=== PATIENT | male | born 1970 | race Caucasian/White ===

== ENCOUNTER → 2016-06-10 | Outpatient (CLI) | payer OTHER ==
[~2016-06-10] MED LIST: ALBUAER2 INH; ATEN100T8 PO; FLUT0.0529 NAE; GLC500; LEVO25TA PO; LPD600; MYS50 PO; OXYC-57 PO; POTA8TAB PO; PXL/40 PO; WLLSR100 PO
[2016-06-10 14:02] LABS: ESTIMATED AVERAGE GLUCOSE 240 mg/dl; HA1C FLAG Normal (Normal)
[2016-06-10 14:26] LABS: TRIGLYCERIDES 696 mg/dl (0-150)
== END | disposition home or self-care (01) ==
LOC: C.LABMFLN 11:08
PROVIDERS: ATTEND Family Medicine
DX: I10 Essential (primary) hypertension (principal); F41.9 Anxiety disorder, unspecified; E11.9 Type 2 diabetes mellitus without complications; E78.5 Hyperlipidemia, unspecified

== ENCOUNTER → 2016-09-24 | Outpatient (CLI) | payer OTHER ==
[2016-09-24 13:21] LABS: ESTIMATED AVERAGE GLUCOSE 137 mg/dl; HA1C FLAG Normal (Normal)
[2016-09-24 14:23] LABS: ALT/SGPT 36 U/L (12-78); AST/SGOT 16 U/L (15-37); BLOOD UREA NITROGEN 21 mg/dl (7-18); BUN/CREATININE RATIO 22.4 (10-20); CALCIUM 9.2 mg/dl (8.5-10.1); CARBON DIOXIDE 25 mmol/L (21-32); CHLORIDE 101 mmol/L (98-107); CREATININE 0.93 mg/dl (0.60-1.40); GLUCOSE 121 mg/dl (70-99); POTASSIUM 4.2 mmol/L (3.5-5.1); SODIUM 137 mmol/L (136-145)
[2016-09-24 14:33] LABS: ALB/GLOB RATIO 1.1 (0.9-2); ALKALINE PHOSPHATASE 72 U/L (45-117); CHOLESTEROL 185 mg/dl (0-200); CHOLESTEROL/HDL RATIO 4.2; HDL CHOLESTEROL 44 mg/dl; LDL CHOLESTEROL CALCULATED 106 mg/dl; TRIGLYCERIDES 174 mg/dl (0-150); VERY LOW DENSITY LIPOPROT CALC 35 mg/dl
== END | disposition home or self-care (01) ==
LOC: C.LABMFLN 10:44
PROVIDERS: ATTEND Family Medicine
DX: E11.65 Type 2 diabetes mellitus with hyperglycemia (principal); E78.5 Hyperlipidemia, unspecified; E55.9 Vitamin D deficiency, unspecified; E03.9 Hypothyroidism, unspecified

== ENCOUNTER → 2017-02-03 | Outpatient (CLI) | payer OTHER ==
[2017-02-03 18:05] LABS: ALT/SGPT 29 U/L (12-78); BLOOD UREA NITROGEN 19 mg/dl (7-18); BUN/CREATININE RATIO 22.5 (10-20); CALCIUM 9.2 mg/dl (8.5-10.1); CARBON DIOXIDE 30 mmol/L (21-32); CHLORIDE 102 mmol/L (98-107); CREATININE 0.84 mg/dl (0.60-1.40); GLUCOSE 129 mg/dl (70-99); POTASSIUM 3.9 mmol/L (3.5-5.1); SODIUM 137 mmol/L (136-145)
[2017-02-03 18:15] LABS: ALKALINE PHOSPHATASE 60 U/L (45-117); AST/SGOT 19 U/L (15-37)
[2017-02-04 06:12] LABS: ESTIMATED AVERAGE GLUCOSE 131 mg/dl; HA1C FLAG Normal (Normal)
== END | disposition home or self-care (01) ==
LOC: C.LABMFLN 14:17
PROVIDERS: ATTEND Family Medicine
DX: E11.9 Type 2 diabetes mellitus without complications (principal); E03.9 Hypothyroidism, unspecified

== ENCOUNTER → 2017-08-18 | Outpatient (CLI) | payer OTHER ==
[2017-08-18 18:15] LABS: ALT/SGPT 40 U/L (12-78); AST/SGOT 21 U/L (15-37); BLOOD UREA NITROGEN 12 mg/dl (7-18); CALCIUM 9.4 mg/dl (8.5-10.1); CARBON DIOXIDE 24 mmol/L (21-32); CREATININE 0.81 mg/dl (0.60-1.40); GLUCOSE 200 mg/dl (70-99); POTASSIUM 4.1 mmol/L (3.5-5.1); SODIUM 134 mmol/L (136-145)
[2017-08-18 18:26] LABS: ALKALINE PHOSPHATASE 75 U/L (45-117); TOTAL PROTEIN 7.9 gm/dl (6.4-8.2)
[2017-08-19 06:15] LABS: HEMOGLOBIN A1C 7.4 % (4.5-5.6)
== END | disposition home or self-care (01) ==
LOC: C.LABMFLN 12:12
PROVIDERS: ATTEND Family Medicine
DX: E11.65 Type 2 diabetes mellitus with hyperglycemia (principal); E03.9 Hypothyroidism, unspecified; E55.9 Vitamin D deficiency, unspecified

== ENCOUNTER → 2018-01-13 | Outpatient (CLI) | payer OTHER ==
[2018-01-13 18:47] LABS: ALT/SGPT 46 U/L (12-78); BLOOD UREA NITROGEN 10 mg/dl (7-18); CALCIUM 9.4 mg/dl (8.5-10.1); CARBON DIOXIDE 26 mmol/L (21-32); CREATININE 0.87 mg/dl (0.60-1.40); GLUCOSE 90 mg/dl (70-99); LDL CHOLESTEROL (DIRECT) 78 mg/dl; SODIUM 138 mmol/L (136-145)
[2018-01-14 05:57] LABS: HEMOGLOBIN A1C 6.4 % (4.5-5.6)
== END | disposition home or self-care (01) ==
LOC: C.LABMFLN 13:51
PROVIDERS: ATTEND Family Medicine
DX: E55.9 Vitamin D deficiency, unspecified (principal); E78.5 Hyperlipidemia, unspecified

== ENCOUNTER 2023-06-10 09:55 | Observation (INO) ==
--- NOTE | 2023-05-09 10:23 | PAT Medication Instructions ---
Medication Instructions Date of Service May 09, 2023 Home Medications Medication Instructions Recorded lancets 30 gauge (AzaleaTouch [place] #180 ea 01/11/19 Lancets) blood sugar diagnostic (AzaleaTouch #180 ea 08/26/19 Verio test strips) sildenafil 100 mg tablet 100 mg PO .expected intercourse 09/11/21 #14 tabs atorvastatin 20 mg tablet 20 mg PO DAILY #90 tabs 08/02/22 metformin 1,000 mg tablet 1,000 mg PO BID #60 tabs 11/29/22 albuterol sulfate 90 mcg/actuation 2 inh inhalation Q8H PRN shortness 01/20/23 aerosol inhaler of breath or wheezing #8.5 grams fluticasone propionate 50 See Rx Instructions .Route 02/12/23 mcg/actuation nasal .COMPLEX #16 grams spray,suspension gemfibrozil 600 mg tablet 600 mg PO BID #60 tabs 02/24/23 diclofenac sodium 75 mg 75 mg PO BID #60 tabs 03/04/23 tablet,delayed release pregabalin 50 mg capsule 50 mg PO BID #60 caps 03/07/23 buspirone 7.5 mg tablet 7.5 mg PO BID #30 tabs 05/08/23 sildenafil 100 mg tablet 100 mg PO .expected intercourse atorvastatin 20 mg tablet 20 mg PO DAILY ibuprofen 200 mg capsule 200 mg PO Q6H PRN Pain metformin 1,000 mg tablet 1,000 mg PO BID albuterol sulfate 90 mcg/actuation aerosol inhaler 2 inh inhalation Q8H PRN shortness of breath or wheezing fluticasone propionate 50 mcg/actuation nasal spray,suspension See Rx Instructions gemfibrozil 600 mg tablet 600 mg PO BID diclofenac sodium 75 mg tablet,delayed release 75 mg PO BID pregabalin 50 mg capsule 50 mg PO BID buspirone 7.5 mg tablet 7.5 mg PO BID cetirizine 10 mg tablet 10 mg PO DAILY PRN Allergy Symptoms glimepiride 2 mg tablet 2 mg PO QAM levothyroxine 100 mcg tablet 100 mcg PO QAM lisinopril 20 mg-hydrochlorothiazide 25 mg tablet 1 tab PO QAM nicotine (polacrilex) 2 mg gum 2 mg buccal Q2H PRN craving paroxetine HCl 40 mg tablet 40 mg PO QPM Continue as directed atorvastatin 20 mg tablet 20 mg PO DAILY fluticasone propionate 50 mcg/actuation nasal spray,suspension See Rx Instructions ASK your surgeon for instructions ibuprofen 200 mg capsule 200 mg PO Q6H PRN Pain diclofenac sodium 75 mg tablet,delayed release 75 mg PO BID STOP taking 48 hours before surgery gemfibrozil 600 mg tablet 600 mg PO BID STOP taking 24 hours before surgery sildenafil 100 mg tablet 100 mg PO .expected intercourse DO NOT take the morning of surgery metformin 1,000 mg tablet 1,000 mg PO BID cetirizine 10 mg tablet 10 mg PO DAILY PRN Allergy Symptoms glimepiride 2 mg tablet 2 mg PO QAM lisinopril 20 mg-hydrochlorothiazide 25 mg tablet 1 tab PO QAM nicotine (polacrilex) 2 mg gum 2 mg buccal Q2H PRN craving Take morning of surgery With a small sip of water, OTHERWISE NOTHING TO EAT OR DRINK AFTER MIDNIGHT: albuterol sulfate 90 mcg/actuation aerosol inhaler 2 inh inhalation Q8H PRN shortness of breath or wheezing (use if needed; please bring with you to hospital day of surgery if possible) pregabalin 50 mg capsule 50 mg PO BID buspirone 7.5 mg tablet 7.5 mg PO BID levothyroxine 100 mcg tablet 100 mcg PO QAM Take evening before surgery metformin 1,000 mg tablet 1,000 mg PO BID albuterol sulfate 90 mcg/actuation aerosol inhaler 2 inh inhalation Q8H PRN shortness of breath or wheezing (if needed) pregabalin 50 mg capsule 50 mg PO BID buspirone 7.5 mg tablet 7.5 mg PO BID cetirizine 10 mg tablet 10 mg PO DAILY PRN Allergy Symptoms (if needed) paroxetine HCl 40 mg tablet 40 mg PO QPM nicotine (polacrilex) 2 mg gum 2 mg buccal Q2H PRN craving (if needed) Other Notes If you have any questions please call us at [phone] or [phone] or [phone] or [phone]
--- NOTE | 2023-05-14 09:10 | Anesthesiology Consultation ---
Date of Service May 14, 2023 Assessment & Plan (1) Encounter for pre-operative examination: - Awaiting review of preop testing (labs + A1C/MRSA, EKG). - IV LR, bsg - Check BSG AM DOS - Infectious disease screening: Per assessment on 05/08/23: No known infectious disease contacts or current infectious disease symptoms. No noted recent Covid positive test result. Chart Review Chart Review: Patient seen in Pre Admission Testing Teaching & Discussion Pre-Anesthesia Teaching/Discussion Notes: Instructed NPO after midnight before surgery,except medications with 15 cc of water. Medication instructions provided according to the PAT guidelines. History Surgery Operation Date: 06/03/23 07:15 Proposed Procedures p L2-L3 Lumbar Decompression - Golden Benites MD Height/Weight Height: 6 ft Weight: 147.871 kg Allergies Allergy/AdvReac Type Severity Reaction Status Date / Time meloxicam Allergy Unknown ?slurred Verified 05/14/23 08:20 speech liraglutide [From Victoza] Allergy itching Verified 05/14/23 08:20 Medications Home Medications Medication Instructions Recorded Confirmed Last Taken lancets 30 gauge (OneTouch [employer]ica #180 ea 01/11/19 05/14/23 Unknown Lancets) blood sugar diagnostic (OneTouch #180 ea 08/26/19 05/14/23 Unknown Verio test strips) blood sugar diagnostic (OneTouch #10 ea 09/07/19 05/14/23 Unknown Verio test strips) lancets 33 gauge (OneTouch Delica #100 ea 09/07/19 05/14/23 Unknown Lancets) sildenafil 100 mg tablet 100 mg PO .expected intercourse 09/11/21 05/14/23 Unknown #14 tabs atorvastatin 20 mg tablet 20 mg PO DAILY #90 tabs 08/02/22 05/14/23 Unknown ibuprofen 200 mg capsule 200 mg PO Q6H PRN Pain 08/02/22 05/14/23 Unknown albuterol sulfate 90 mcg/actuation 2 inh inhalation Q8H PRN shortness 01/20/23 1 07/15/22 Unknown aerosol inhaler of breath or wheezing #8.5 grams fluticasone propionate 50 See Rx Instructions .Route 02/12/23 05/14/23 Unknown mcg/actuation nasal .COMPLEX #16 grams spray,suspension gemfibrozil 600 mg tablet 600 mg PO BID #60 tabs 10/02/23 12/20/23 Unknown diclofenac sodium 75 mg 75 mg PO BID #60 tabs 03/04/23 05/14/23 Unknown tablet,delayed release pregabalin 50 mg capsule 50 mg PO BID #60 caps 03/07/23 05/14/23 Unknown buspirone 7.5 mg tablet 7.5 mg PO BID #30 tabs 05/08/23 05/14/23 Unknown cetirizine 10 mg tablet 10 mg PO DAILY PRN Allergy Symptoms 05/08/23 05/14/23 Unknown glimepiride 2 mg tablet 2 mg PO QAM 05/08/23 05/14/23 Unknown lisinopril 20 1 tab PO QAM 05/08/23 05/14/23 Unknown mg-hydrochlorothiazide 25 mg tablet nicotine (polacrilex) 2 mg gum 2 mg buccal Q2H PRN craving 05/08/23 05/14/23 Unknown paroxetine HCl 40 mg tablet 40 mg PO QPM 05/08/23 05/14/23 Unknown metformin 1,000 mg tablet 1,000 mg PO BID #60 tabs 05/12/23 05/14/23 Unknown levothyroxine 100 mcg tablet 100 mcg PO QAM #90 tabs 05/13/23 05/14/23 Unknown Past Medical History Medical History History of degenerative disc disease Spinal stenosis Osteoarthritis Anxiety HTN (hypertension) Sleep apnea CPAP Lumbar radiculopathy Diabetes mellitus type 2, uncontrolled Hyperlipidemia Hypothyroidism Morbid obesity Past Family History Family History Mother Diabetes Cancer Renal cell cancer metastatic bone. Grandfather (Paternal) Myocardial infarction, Onset Age: 70 Cancer ? type 70s Grandmother (Maternal) No problems noted. Grandmother (Paternal) Cancer Lung cancer Father Heart disease Uncle Prostate cancer Alcoholism Uncle Cancer, Onset Age: 52 throat cancer alcohol and smoker Sister No problems noted. Aunt Cancer, Onset Age: 68 uterine cancer mets to brain age 70 Past Surgical History Surgical History History of cervical spinal surgery ROM WNL History of left knee surgery History of right knee surgery x2 History of nasal septoplasty Social History Smoking Status: Current every day smoker tobacco type: cigarettes Smoking cigarettes per day: 20 Do You Dip or Chew Tobacco: No Hx Alcohol Use: No Alcohol type: beer Hx Substance Use: No substance use type: does not use Physical Exam Vital Signs VITALS BP P TEMP SP02 RESP PHYSICAL Full cervical extension range of motion. Full TMJ range of motion. TMD __ finger breaths Mallampati Score ___ Dentition: intact Lungs: clear throughout to auscultation Cardiac: regular rate and rhythm, no murmurs noted Spine: normal Carotid arteries: negative bruit Extremities: no LE edema
--- NOTE | 2023-05-23 13:18 | Anesthesiology Consultation ---
Date of Service May 23, 2023 Assessment & Plan (1) Encounter for pre-operative examination: Chart Review Chart Review: Acceptable Risk for Surgery and Patient seen in Pre Admission Testing - Check BSG AM DOS - Discussed case with Dr. Chambers- patient can proceed as scheduled from anesthesia standpoint Per PAT appt on 05/15/23, no recent illness/disease exposures, illness related symptoms, or recent illness/disease positive tests. Will leave to surgeon's discretion if preop Covid testing needed Teaching & Discussion Pre-Anesthesia Teaching/Discussion Notes: Instructed NPO after midnight before surgery,except medications with 15 cc of water. Medication instructions provided according to the PAT guidelines. History Surgery Operation Date: 06/03/23 07:15 Proposed Procedures p L2-L3 Lumbar Decompression - Golden Benites MD Height/Weight Height: 6 ft Weight: 145.1 kg Allergies Allergy/AdvReac Type Severity Reaction Status Date / Time meloxicam Allergy Unknown ?slurred Verified 05/14/23 08:20 speech liraglutide [From Victoza] Allergy itching Verified 05/14/23 08:20 Medications Home Medications Medication Instructions Recorded Confirmed Last Taken lancets 30 gauge (OneTouch Delica #180 ea 01/11/19 05/14/23 Unknown Lancets) blood sugar diagnostic (OneTouch #180 ea 08/26/19 05/14/23 Unknown Verio test strips) blood sugar diagnostic (OneTouch #10 ea 09/07/19 05/14/23 Unknown Verio test strips) lancets 33 gauge (OneTouch Delica #100 ea 09/07/19 05/14/23 Unknown Lancets) sildenafil 100 mg tablet 100 mg PO .expected intercourse 09/11/21 05/14/23 Unknown #14 tabs atorvastatin 20 mg tablet 20 mg PO DAILY #90 tabs 08/02/22 05/14/23 Unknown ibuprofen 200 mg capsule 200 mg PO Q6H PRN Pain 08/02/22 05/14/23 Unknown albuterol sulfate 90 mcg/actuation 2 inh inhalation Q8H PRN shortness 01/20/23 05/14/23 Unknown aerosol inhaler of breath or wheezing #8.5 grams fluticasone propionate 50 See Rx Instructions .Route 02/12/23 05/14/23 Unknown mcg/actuation nasal .COMPLEX #16 grams spray,suspension gemfibrozil 600 mg tablet 600 mg PO BID #60 tabs 02/24/23 05/14/23 Unknown diclofenac sodium 75 mg 75 mg PO BID #60 tabs 03/04/23 05/14/23 Unknown tablet,delayed release pregabalin 50 mg capsule 50 mg PO BID #60 caps 03/07/23 05/14/23 Unknown buspirone 7.5 mg tablet 7.5 mg PO BID #30 tabs 05/08/23 05/14/23 Unknown cetirizine 10 mg tablet 10 mg PO DAILY PRN Allergy Symptoms 05/08/23 05/14/23 Unknown glimepiride 2 mg tablet 2 mg PO QAM 05/08/23 05/14/23 Unknown lisinopril 20 1 tab PO QAM 05/08/23 05/14/23 Unknown mg-hydrochlorothiazide 25 mg tablet nicotine (polacrilex) 2 mg gum 2 mg buccal Q2H PRN craving 05/08/23 05/14/23 Unknown paroxetine HCl 40 mg tablet 40 mg PO QPM 05/08/23 05/14/23 Unknown metformin 1,000 mg tablet 1,000 mg PO BID #60 tabs 05/12/23 05/14/23 Unknown levothyroxine 100 mcg tablet 100 mcg PO QAM #90 tabs 05/13/23 05/14/23 Unknown Past Medical History Medical History (Updated 05/27/23 @ 11:14 by Suha Gutierrez PA-C) Asthma Breathing stable Type 2 diabetes mellitus Hgb A1C 8.8 on 05/23/23 History of degenerative disc disease Spinal stenosis Anxiety HTN (hypertension) Sleep apnea CPAP Lumbar radiculopathy Hyperlipidemia Hypothyroidism Morbid obesity Exercise / Class Metabolic Activity III < 4 Walking/Shop/Light housework (no chest pain or SOB with flat surface ambulation ; only a few stairs at home ) Past Family History Family History Mother Diabetes Cancer Renal cell cancer metastatic bone. Grandfather (Paternal) Myocardial infarction, Onset Age: 70 Cancer ? type 70s Grandmother (Maternal) No problems noted. Grandmother (Paternal) Cancer Lung cancer Father Heart disease Uncle Prostate cancer Alcoholism Uncle Cancer, Onset Age: 52 throat cancer alcohol and smoker Sister No problems noted. Aunt Cancer, Onset Age: 68 uterine cancer mets to brain age 70 Past Surgical History Surgical History History of cervical spinal surgery ROM WNL History of left knee surgery History of right knee surgery x2 History of nasal septoplasty Past Anesthesia History No Hx of Anesthesia Complications and No Family Hx of Anesthesia Complications History of PONV No Hx of PONV and No Hx of Motion Sickness Social History Smoking Status: Current every day smoker tobacco type: cigarettes Smoking cigarettes per day: 20 cigs/day Do You Dip or Chew Tobacco: No Hx Alcohol Use: No Hx Substance Use: No substance use type: does not use Review of Systems - Chronic wheezing- due to asthma- mild and stable Patient denies chest pain, shortness of breath, dyspnea on exertion, reflux, cough, palpitations. No hx of seizures, stroke, CO. No hx of blood clots or blood transfusions Physical Exam Vital Signs VITALS BP 117/75 P 87 TEMP 98.3 SP02 96% RESP 16 Constitutional no acute distress ENMT Mouth: no TMJ clicking Thyromental Distance: > or= 3.5 Finger Breadths (4.0) Mallampati Class: II Missing molars Neck + limited neck extension (mild) and + facial hair (advised to trim/shave) Respiratory normal respiratory effort; no respiratory distress Auscultation: lungs clear to auscultation bilaterally; no wheezes Cardiovascular Rate/Rhythm: regular rate and regular rhythm Heart Sounds: no murmur Vessels: no carotid bruit Heart sounds diminished throughout (mild) Musculoskeletal Spine: no pain with cervical ROM Extremities: extremities normal to inspection Psychiatric Orientation: alert Lab Results Anesthesia Preop Results Results Anesthesia Widget: WBC 10.33 K/ul (4.8-10.8) 05/23/23 Hgb 14.1 g/dl (14.0-18.0) 05/23/23 Hct 42.2 % (42.0-52.0) 05/23/23 Plt 330 K/uL (130-400) 05/23/23 Na 137 mmol/L (136-145) 05/23/23 K 4.3 mmol/L (3.5-5.1) 05/23/23 Cl 102 mmol/L (98-107) 05/23/23 CO2 25 mmol/L (21-32) 05/23/23 BUN 18 mg/dl (6-23) 05/23/23 Creat 0.87 mg/dl (0.6-1.4) 05/23/23 Glucose Level 193 mg/dl (70-99(Fasting)) H 05/23/23 PT 10.9 Seconds (9.0-12.0) 05/23/23 PTT 27 Seconds (21-31) 05/23/23 INR 1.0 (0.9-1.1) 05/23/23 HA1c 8.8 % (4.5-5.6) H 05/23/23 Blood Type O Positive 05/23/23 Antibody Screen NEGATIVE 05/23/23 Testing Laboratory Results Elevated Hgb A1C- surgeon's office informed- will leave to surgeon's discretion with how to proceed Electrocardiogram Date: 05/23/23 Findings: + NSR @ (79bpm) Rightward axis Chest X-Ray Date: 05/23/23 Findings: + NAD FINDINGS: Cardiomediastinal and hilar silhouettes are within normal limits. Calcified hilar lymph nodes. No pneumothorax, pleural effusion, airspace consolidation or pulmonary edema. Unchanged chronic punctate metallic density focus projected over the right upper chest. Cervical spinal fusion hardware. IMPRESSION: No acute process.
[~2023-06-10 09:55] MED LIST changes: -ALBUAER2 INH; -ATEN100T8 PO; -FLUT0.0529 NAE; -GLC500; -LEVO25TA PO; -LPD600; +LR 15ML/HR IV SCH; +LR 60ML/HR IV SCH; -MYS50 PO; -OXYC-57 PO; -POTA8TAB PO; -PXL/40 PO; -WLLSR100 PO
[2023-06-10] MEDS ORDERED: ONDANSETRON INJ 2 MG/ML 2 ML VIAL ONE (10:38)
[2023-06-10] MEDS ORDERED: GLYCOPYRROLATE 0.2 MG/ML VIAL ONE (10:38)
[2023-06-10] MEDS ORDERED: ROCURONIUM BROMIDE 10 MG/ML 5 ML VIAL IV ONE (10:38)
[2023-06-10] MEDS ORDERED: DEXAMETHASONE SOD INJ 4 MG/ML VIAL ONE (10:38)
[2023-06-10] MEDS ORDERED: LIDOCAINE 2% 2 ML VIAL/AMP(20MG/ML) INFIL ONE (10:38)
[2023-06-10] MEDS ORDERED: PROPOFOL IV EMULSION 10 MG/ML 20 ML VIAL IV ONE (10:38)
[2023-06-10] MEDS ORDERED: fentaNYL citrate PF 100 MCG/2 ML VIAL ONE ×2 (10:39→12:21)
[2023-06-10] MEDS ORDERED: MIDAZOLAM HCL 1 MG/ML 2ML VIAL ONE (10:39)
[2023-06-10] MEDS ORDERED: SUGAMMADEX SODIUM 200 MG/2 ML VIAL IV ONE (10:41)
--- NOTE | 2023-06-10 11:05 | History & Physical Bridge Note ---
Date of Service June 10, 2023 History & Physical Bridge Note I have examined the patient, reviewed the History & Physical and in the interval since the performance of the History & Physical I have noted the following changes of clinical significance: no changes noted
[2023-06-10] MEDS ORDERED: ALBUTEROL 0.083% NEBU SOLN 3 ML VIAL NEB STA (11:06)
[2023-06-10] MEDS ORDERED: ONDANSETRON INJ 2 MG/ML 2 ML VIAL IV PRN ×2 (11:09→14:30)
[2023-06-10] MEDS ORDERED: HYDROmorphone INJ 1 MG/ML SYRINGE IV PRN (11:09)
[2023-06-10] MEDS ORDERED: ATROPINE SULFATE 0.1 MG/ML 10ML SYR IV PRN (11:09)
[2023-06-10] MEDS ORDERED: PROMETHAZINE HCL 12.5 MG in SODIUM CHLORIDE 0.9% 50 ML IV PRN ×2 (11:09→14:30)
[2023-06-10] MEDS ORDERED: ALBUTEROL 0.083% NEBU SOLN 3 ML VIAL INH PRN (11:10)
[2023-06-10] MEDS ORDERED: VANCOMYCIN HCL 1000MG/20ML VIAL ONE (11:19)
[2023-06-10] MEDS ORDERED: BUPIVACAINE/EPINEPHRINE 0.5% MPF 1:200,000 30 ML VIAL ONE (11:19)
[2023-06-10] MEDS ORDERED: THROMBIN 5000 UNITS KIT ONE (11:19)
[2023-06-10] MEDS ORDERED: GELATIN SPONGE SZ 100 ONE (11:19)
[2023-06-10] MEDS ORDERED: SOD PHOSPHATE/SOD BIPHOSPHATE ENEMA 132 ML BTL PR PRN (14:30)
[2023-06-10] MEDS ORDERED: LORazepam 0.5 MG in SYRINGE 0.25 ML IV PRN (14:30)
[2023-06-10] MEDS ORDERED: LORazepam 0.5 MG TAB PO PRN (14:30)
[2023-06-10] MEDS ORDERED: HYDROmorphone INJ 0.5 MG/0.5 ML SYR IV PRN (14:30)
[2023-06-10] MEDS ORDERED: oxyCODONE/ACETAMINOPHEN 5mg/325mg TAB PO PRN (14:30)
[2023-06-10] MEDS ORDERED: NALOXONE HCL 0.4 MG/1 ML VIAL/CARP IV PRN (14:30)
[2023-06-10] MEDS ORDERED: bisacodyL 10 MG SUPP PR PRN (14:30)
[2023-06-10] MEDS ORDERED: METOCLOPRAMIDE HCL INJ 5 MG/ML 2 ML VIAL IV PRN (14:30)
[2023-06-10] MEDS ORDERED: MAGNESIUM HYDROXIDE SUSP 30 ML UDC PO PRN (14:30)
[2023-06-10] MEDS ORDERED: ACETAMINOPHEN 1,000 MG/100 ML VIAL IV PRN (14:30)
[2023-06-10] MEDS ORDERED: DO NOT ADMINISTER FLU VACCINE PRN (14:30)
[2023-06-10] MEDS ORDERED: FAMOTIDINE 20 MG TAB PO PRN (14:30)
[2023-06-10] MEDS ORDERED: DO NOT ADMINISTER PNEUMOCOCCAL VACCINE PRN (14:30)
[2023-06-10] MEDS ORDERED: ALUMINUM/MAGNESIUM SUSP 30 ML UDC PO PRN (14:30)
[2023-06-10] MEDS ORDERED: ONDANSETRON 4 MG OD TAB PO PRN (14:30)
[2023-06-10] MEDS ORDERED: hydrOXYzine HCl 25 MG TAB PO PRN (14:30)
[2023-06-10] MEDS ORDERED: diphenhydrAMINE Capsule 25 MG CAP PO PRN (14:30)
[2023-06-10] MEDS ORDERED: ACETAMINOPHEN 500 MG TAB PO PRN (14:30)
[2023-06-10] MEDS ORDERED: ALBUTEROL HFA 8 GM INHALER INH PRN (14:38)
[2023-06-10] MEDS ORDERED: CETIRIZINE HCL 10 MG TABLET PO PRN (14:38)
[2023-06-10] MEDS ORDERED: NON-FORMULARY MEDICATION (Sildenafil 100 mg tablet) PO SCH (14:45)
--- NOTE | 2023-06-10 14:46 | Fluoroscopy Report ---
FL spine 1V any level CLINICAL HISTORY: L2-L3 DECOMPRESSION COMPARISON STUDY: None. FLUOROSCOPY TIME: 39 seconds FLUOROSCOPY IMAGES: 3 Ka,r: 35.6 mGy FINDINGS: Surgical instruments are seen posterior to the L2-L3 and L3-L4 vertebral bodies. IMPRESSION: Fluoroscopic assistance as above. ACT 112: Negative or not required by law. Electronically signed by: Germain Lewis M.D. 06/10/2023 2:45 PM
--- NOTE | 2023-06-10 15:21 | Post Operative Brief Note ---
PG Immediate Post Op with CF Date of Surgery June 10, 2023 Pre & Post Diagnosis Operation Date: 06/10/23 11:30 Pre-Op Diagnosis: Lumbar Stenosis, Lumbar Radiculopathy Post-Op Diagnosis: Lumbar Stenosis, Lumbar Radiculopathy I identified the patient and participated in the time-out.: Yes Procedure Operation Date: 06/10/23 11:30 Actual Procedures p L2-L3 Lumbar Decompression(Not Applicable) - Golden Benites MD Surgeon Golden Benites MD Fashion Intern none Estimated Blood Loss 30 Findings Consistent with Post-Op Diagnosis Specimens Specimen Description: none per surgeon
[2023-06-10] MEDS ORDERED: PHARMACY GLYCEMIC MGMT CONSULT PRN (15:59)
[2023-06-10] MEDS ORDERED: IBUPROFEN 200 MG TAB PO PRN (16:28)
[2023-06-10] MEDS ORDERED: CARBOHYDRATES FOR HYPOGLYCEMIA PO PRN (16:45)
[2023-06-10] MEDS ORDERED: GLUCOSE 40% GEL 15 GM TUBE PO PRN (16:45)
[2023-06-10] MEDS ORDERED: GLUCOSE 10 TAB/TUBE PO PRN (16:45)
[2023-06-10] MEDS ORDERED: GLUCAGON FOR INJ 1 MG VIAL IM PRN (16:45)
[2023-06-10] MEDS ORDERED: DEXTROSE 50% 50 ML SYRINGE IV PRN (16:45)
[2023-06-10] MEDS: INSULIN ASPART PER UNIT CHARGE SC SCH ×3 (16:56→23:26)
--- NOTE | 2023-06-10 16:59 | Hospitalist Consultation ---
Date of Consultation June 10, 2023 Assessment & Plan (1) S/P spinal surgery: L2-L3 decompression with Dr. Benites on 06/10/23 Perioperative antibiotics, pain management, fluids, and DVT PPx per the primary team Patient reports LBP is managed at time of consult Activity: OOB as tolerated Agree with a.m. CBC, BMP; we will follow PT/OT consulted (2) Sleep apnea: Patient did not bring in home CPAP, which he uses at night for sleep apnea Ordered CPAP HS (3) Tobacco use: Patient reports that he quit smoking last Saturday 06/03 Former everyday tobacco cigarette smoker; 1-1.5 PPD Declined nicotine patches while inpatient Nicotine 2 mg buccal q2h prn (4) Wheezing: Expiratory wheeze on physical exam May be secondary to recent illness or chronic tobacco use CXR ordered, pending COVID negative on arrival Hx of asthma; albuterol inhaler as needed Supplemental oxygen as needed to maintain SpO2 >94% Ordered DuoNeb 3 mL as needed (5) Diabetes mellitus: Last A1c at 8.8% on 05/23/2023 Glucose 203 on admission Agree with holding glimepiride, metformin Pharmacy glycemic consult for basal insulin control, due to steroid use while inpatient SSI; with target BSG range 110-140mg/dL, CF 25, carb ratio 8 T2DM diet Adjust regimen as needed (6) Depression with anxiety: Continue paroxetine, escitalopram ?taking both; ?weening up on escitalopram (7) Hyperlipidemia: Continue gemfibrozil, atorvastatin (8) Hypothyroidism: Continue levothyroxine (9) HTN (hypertension): Continue lisinoprilHCTZ starting in the morning of 06/11 Plan Agree with medical decision making Disposition: MedSurg T2DM, full liquid diet as tolerated VTE PPx: SCDs/Teds Thank you for allowing us to participate in the care of this patient, please reach out with any questions or concerns. Supervising Physician Co-Signing Physician Notes I personally saw and examined the patient. I independently reviewed the labs, imaging, EKG, problem list, medication list, past medical history and family history. I verified all munoz points and agree with Germain Gonzalez PA-C with the following exceptions and/or additions: 53 year old male POD#0 L2-L3 Lumbar Decompression. EBL 30ml. Pt reports respiratory illness 7 days ago but feeling much better. Stopped taking his medications then as felt too sick to take them. O/E A&Ox3, HS RRR, no murmurs, no respiratory distress, mild expiratory wheezing throughout, Abdo SNT A/P Depression - currently weaning of paroxetine onto Lexapro - doses adjusted per patient report HTN - Hold anti-hypertensives today. Continue usual anti-hypertensives tomorrow as long as normotensive. Suspected reactive airway disease (COPD/asthma) with wheezing on exam - recent viral sounding illness with normal CXR today. Possibly exacerbated underlying asthma/COPD. Discussed harm of using albuterol every night and recommend discussion LABA/ICS inhaler with his PCP +/- lung function testing. Smoking cessation heavily advised. T2DM - prior HbA1C 8.8 in April, increased due to patient not being on Trulicity which he plans to restart on discharge therefore no change to discharge medications required JOSE - CPAP HS History of Present Illness Reason for Consultation: Medical management Requesting Physician: Golden Benites MD Attending Physician: Golden Benites MD History of Present Illness Leighton is a 53-year-old male with PMH of hypothyroidism, HTN, HLD, T2DM, HNP, depression with anxiety, sleep apnea, essential tremor, and asthma. He presented for an L2-L3 lumbar decompression with Dr. Benites at 1130 on 06/10/23. Per review of brief operative report, EBL was listed as 30 cc. Patient endorses mild lower back pain at time of consult, which she rates 2/10. No radiation. No numbness/tingling in the legs or groin region. He has been eating and drinking okay since being up. He has not tried to use the restroom since being up. Last BM on the evening of 06/09. He denies supplemental at home oxygen use, but uses a CPAP at night (which she left at home). Of note, patient has not been taking his medication over the past week due to recent illness ( which patient believes was the flu). He last took his blood pressure medications 1 week ago. He did not take any medications this morning. Patient is a former tobacco cigarette smoker, and notes that he quit last Friday on 06/03 just prior to getting sick. 1-1.5 PPD; tobacco cigarettes; patient denies vaping and recreational drug use. Per review of patient's vitals, he has been stable postop; SpO2 93% on RA. ROS: Patient endorses mild lower back pain, night-sweats (ongoing x 1 week), and productive cough. Patient denies fever, chills, body aches, ALANIS, dizziness, lightheadedness, CP, chest palpitations, pleuritic CP, hemoptysis, SOB, bdominal pain, N/V/D, dysuria, burning with urination, blood in the urine/stool, saddle anesthesia, or numbness/tingling/pain in the legs. Allergies Allergy/AdvReac Type Severity Reaction Status Date / Time meloxicam Allergy Unknown ?slurred Verified 06/10/23 10:44 speech liraglutide [From Victoza] Allergy itching Verified 06/10/23 10:44 Home Medications Medication Instructions Recorded Confirmed Type lancets 30 gauge (OneTouch Delica #180 ea 01/11/19 05/14/23 Rx Lancets) blood sugar diagnostic (OneTouch #180 ea 08/26/19 05/14/23 Rx Verio test strips) blood sugar diagnostic (OneTouch #10 ea 09/07/19 05/14/23 History Verio test strips) lancets 33 gauge (OneTouch Delica #100 ea 09/07/19 05/14/23 History Lancets) sildenafil 100 mg tablet 100 mg PO .expected intercourse 09/11/21 06/10/23 Rx #14 tabs atorvastatin 20 mg tablet 20 mg PO DAILY #90 tabs 08/02/22 06/10/23 Rx ibuprofen 200 mg capsule 200 mg PO Q6H PRN Pain 08/02/22 06/10/23 History albuterol sulfate 90 mcg/actuation 2 inh inhalation Q8H PRN shortness 01/20/23 06/10/23 Rx aerosol inhaler of breath or wheezing #8.5 grams fluticasone propionate 50 See Rx Instructions .Route 02/12/23 06/10/23 Rx mcg/actuation nasal .COMPLEX #16 grams spray,suspension diclofenac sodium 75 mg 75 mg PO BID #60 tabs 03/04/23 06/10/23 Rx tablet,delayed release pregabalin 50 mg capsule 50 mg PO BID #60 caps 03/07/23 06/10/23 Rx cetirizine 10 mg tablet 10 mg PO DAILY PRN Allergy Symptoms 05/08/23 06/10/23 History glimepiride 2 mg tablet 2 mg PO QAM 05/08/23 06/10/23 History lisinopril 20 1 tab PO QAM 05/08/23 06/10/23 History mg-hydrochlorothiazide 25 mg tablet nicotine (polacrilex) 2 mg gum 2 mg buccal Q2H PRN craving 05/08/23 06/10/23 History metformin 1,000 mg tablet 1,000 mg PO BID #60 tabs 05/12/23 06/10/23 Rx levothyroxine 100 mcg tablet 100 mcg PO QAM #90 tabs 05/13/23 06/10/23 Rx buspirone 7.5 mg tablet 7.5 mg PO PM 05/30/23 06/10/23 History escitalopram oxalate 10 mg tablet 5 mg PO PM 05/30/23 06/10/23 History (Lexapro) paroxetine HCl 20 mg tablet 20 mg PO PM 05/30/23 06/10/23 History gemfibrozil 600 mg tablet (Lopid) 600 mg PO BID 06/10/23 06/10/23 History Patient History Medical History (Updated 06/10/23 @ 17:27 by Germain Gonzalez PA-C) Tobacco use Asthma Breathing stable Type 2 diabetes mellitus Hgb A1C 8.8 on 05/23/23 History of degenerative disc disease Spinal stenosis Anxiety HTN (hypertension) Sleep apnea CPAP Lumbar radiculopathy Hyperlipidemia Hypothyroidism Morbid obesity Surgical History (Updated 06/10/23 @ 16:55 by Germain Gonzalez PA-C) History of cervical spinal surgery ROM WNL History of left knee surgery History of right knee surgery x2 History of nasal septoplasty Family History Mother Diabetes Cancer Renal cell cancer metastatic bone. Grandfather (Paternal) Myocardial infarction, Onset Age: 70 Cancer ? type 70s Grandmother (Maternal) No problems noted. Grandmother (Paternal) Cancer Lung cancer Father Heart disease Uncle Prostate cancer Alcoholism Uncle Cancer, Onset Age: 52 throat cancer alcohol and smoker Sister No problems noted. Aunt Cancer, Onset Age: 68 uterine cancer mets to brain age 70 Social History Smoking Status: Current every day smoker Tobacco Type: Cigarettes Age Started Using Tobacco: 48; Cigarettes Per Day: 20 cigs/day; Second Hand Exposure: Yes; Do You Dip or Chew Tobacco: No; Tobacco Cessation Education Requested by Patient: No Hx Alcohol Use: No Hx Substance Use: No Preferred Language: Lao Communication Ability: Effective Pyrotechnics Press Tender Required: No Beliefs That Will Affect Care: None marital status: Current Living Situation: Family Current Living Situation Comment: spouse and son Feels Safe at Home: Yes Safety Concerns: Feels Safe At This Time Childhood Exposure to Second-Hand Smoke: No Seatbelt Use: never Sunscreen Use: Yes Assistive Devices: None Review of Systems Review of Systems: See HPI above Physical Exam Physical Exam: General: no acute distress; pleasant affect; non-toxic appearing; well- nourished; cooperative HEENT: normocephalic, atraumatic; no scleral icterus; PERRLA w/ EOMs intact; moist mucus membrane; vision and hearing grossly intact Neck: supple; no lymphadenopathy; trachea midline Skin: warm, dry without signs of tenting; no cyanosis; no rashes, bruising, lesions, or erythema noted CV: chest wall NTP; RRR; S1/S2 normal; no murmurs/rubs/gallops; pulses intact and symmetric at radial, DP, and PT Lungs: no acute respiratory distress; symmetrical chest wall expansion; no accessory muscle use; expiratory wheeze auscultated across all lung may ABD: Soft, NTP; BS present; no rebound/guarding; no ascites Back: Spine NTP; negative CVA tenderness MSK: no tics or fasciculations; no edema noted in the LEs b/l (SCDs/teds in place); patient demonstrates ability to wiggle toes bilaterally Neuro: A&Ox3; normal mood and affect; fluent speech; no focal deficits; sensation grossly intact in LEs B/L assessed via light touch at the toes Results & Data Results & Data Vital Signs (Past 12 Hours) Vital Signs Temp Pulse Pulse Resp BP Pulse Ox O2 Del Method 06/10/23 16:14 74 18 132/82 92 Room Air 06/10/23 15:45 36.7 C 79 16 137/79 95 Room Air 06/10/23 15:25 66 12 145/82 H 100 Nebulizer 06/10/23 15:15 67 12 152/89 H 97 Room Air 06/10/23 15:05 74 16 135/82 93 Room Air 06/10/23 14:55 73 14 155/77 H 95 Room Air 06/10/23 14:45 78 14 147/95 H 98 Oxymask 06/10/23 14:35 80 17 153/81 H 98 Oxymask 06/10/23 14:27 37.2 C 86 22 148/77 H 98 Oxymask 06/10/23 11:17 70 18 Room Air 06/10/23 10:44 37.1 C 72 20 146/76 H 96 Room Air O2 Flow Rate 06/10/23 16:14 06/10/23 15:45 06/10/23 15:25 06/10/23 15:15 06/10/23 15:05 06/10/23 14:55 06/10/23 14:45 2 06/10/23 14:35 4 06/10/23 14:27 13 06/10/23 11:17 06/10/23 10:44 Laboratory Results Abnormal lab results 06/10/23 06/10/23 06/10/23 Range/Units 11:04 14:45 16:17 POC Glucose 167 H 197 H 203 H (70-99) mg/dl Diagnostic Findings Spine X-Ray 06/10/23 11:30 FL spine 1V any level CLINICAL HISTORY: L2-L3 DECOMPRESSION COMPARISON STUDY: None. FLUOROSCOPY TIME: 39 seconds FLUOROSCOPY IMAGES: 3 Ka,r: 35.6 mGy FINDINGS: Surgical instruments are seen posterior to the L2-L3 and L3-L4 vertebral bodies. IMPRESSION: Fluoroscopic assistance as above. ACT 112: Negative or not required by law. Electronically signed by: Germain Lewis M.D. 06/10/2023 2:45 PM PG Care Time/CCT Total # of Minutes Spent Total Time Spent with Patient: Total time spent is greater than 50% in coordination of care (as documented) at patient's floor/unit and/or counseling patient: [place] [address] IN/OBS CONSULT LVL 4,60M Patient Type New Medical Decision Making Moderate Complexity Diagnoses S/P spinal surgery Z98.890 Sleep apnea G47.30 Tobacco use Z72.0 Wheezing R06.2 Diabetes mellitus E11.9 Depression with anxiety F41.8 Hyperlipidemia E78.5 Hypothyroidism E03.9 HTN (hypertension) I10
[2023-06-10] MEDS ORDERED: metFORMIN HCL 500 MG TAB PO SCH (17:00)
[2023-06-10] MEDS: LACTATED RINGER'S 1,000 ML IV SCH (17:00)
[2023-06-10] MEDS ORDERED: ALBUT/IPRATROP 3MG/0.5MG NEB 3 ML VIAL NEB PRN (17:34)
[2023-06-10] MEDS: oxyCODONE/ACETAMINOPHEN 10-325 TAB PO PRN (17:48)
--- NOTE | 2023-06-10 18:28 | XRay Report ---
XR chest 1V portable HISTORY: 53 years-old Male Wheezing, PNA r/o acute shortness of breath COMPARISON: 05/23/2023 TECHNIQUE: AP view of the chest FINDINGS: Calcified hilar lymph nodes redemonstrated. Cardiac silhouette is upper limits of normal in size. No pneumothorax, pleural effusion, airspace consolidation or pulmonary edema. Cervical spinal fusion alo dware. Degenerative changes of the shoulders and spine. IMPRESSION: No acute process. ACT 112: Negative or not required by law. The above report was generated using voice recognition software. It may contain grammatical, syntax o r spelling errors. Electronically signed by: Mikhail Gómez M.D. 06/10/2023 6:27 PM
[2023-06-10] MEDS: PREGABALIN 50 MG CAP PO SCH (20:05)
[2023-06-10] MEDS: ceFAZolin 2000MG 2,000 MG/15 ML SYR IV SCH (20:05)
[2023-06-10] MEDS: gemfibroziL 600 MG TAB PO SCH (20:06)
[2023-06-10] MEDS ORDERED: DICLOFENAC SODIUM 75 MG TABCR PO SCH (21:00)
[2023-06-10] MEDS ORDERED: DOCUSATE SODIUM/SENNA 50/8.6MG TAB PO SCH (21:00)
[2023-06-10] MEDS ORDERED: LANTUS PER UNIT CHARGE SC ONE (21:00)
[2023-06-10] MEDS ORDERED: PARoxetine HCL 20 MG TAB PO SCH (21:00)
[2023-06-10] MEDS ORDERED: busPIRone 7.5 MG TAB PO SCH (21:00)
[2023-06-10] MEDS ORDERED: ESCITALOPRAM OXALATE 10 MG TAB PO SCH (21:00)
[2023-06-11] MEDS: INSULIN ASPART PER UNIT CHARGE SC SCH ×2 (03:33→08:32)
[2023-06-11] MEDS: ceFAZolin 2000MG 2,000 MG/15 ML SYR IV SCH (03:34)
[2023-06-11] MEDS: oxyCODONE/ACETAMINOPHEN 10-325 TAB PO PRN (04:52)
[2023-06-11] MEDS: LACTATED RINGER'S 1,000 ML IV SCH (04:58)
[2023-06-11] MEDS ORDERED: POLYETHYLENE (MIRALAX) 17 GM PACK PO SCH (06:00)
[2023-06-11] MEDS ORDERED: LEVOTHYROXINE SODIUM 100 MCG TABLET PO SCH (06:30)
--- NOTE | 2023-06-11 08:16 | Orthopedic Progress Note ---
Date of Service June 11, 2023 Subjective . Patient seen and examined, notes some limited incisional pain but no other complaints. Has been up out of bed without any issues. Exam reveals motor intact. Impression/plan: Will mobilize the patient with physical therapy today, postoperative day 1 from L2-3 lumbar decompression. Once cleared by medicine physical therapy can be discharged home with follow-up in 2 weeks. Review of Systems All systems reviewed & are unremarkable except as noted in HPI & below. Physical Exam . Results & Data Results & Data Laboratory Results . Diagnostic Findings . PG Care Time/CCT Total # of Minutes Spent Total Time Spent with Patient: Total time spent is greater than 50% in coordination of care (as documented) at patient's floor/unit and/or counseling patient: Coding Level of Care Code 13833 Post Operative Follow-Up
[2023-06-11] MEDS: gemfibroziL 600 MG TAB PO SCH (08:28)
[2023-06-11] MEDS: PREGABALIN 50 MG CAP PO SCH (08:32)
[2023-06-11 08:50] LABS: Hemoglobin 11.8 g/dl (14.0-18.0); Mean Corpuscular Hgb Conc 32.8 g/dL (32.0-36.0); Mean Corpuscular Volume 91.6 fL (80.0-100.0); Mean Platelet Volume 9.9 fL (9.4-12.4); Platelet Count 253 K/uL (130-400); RDW Coefficient of Variation 12.4 % (11.5-14.5); RDW Standard Deviation 41.6 fL (36.4-46.3); Red Blood Count 3.93 M/uL (4.70-6.10); White Blood Count 13.57 K/ul (4.8-10.8)
[2023-06-11] MEDS ORDERED: LISINOPRIL/HCTZ 20/25MG 1 TAB PO SCH (09:00)
[2023-06-11] MEDS ORDERED: ATORVASTATIN 20 MG TAB PO SCH (09:00)
[2023-06-11] MEDS ORDERED: GLIMEPIRIDE 2 MG TAB PO SCH (09:00)
[2023-06-11 09:01] LABS: BUN Creatinine Ratio 11.3 (10-20); Calcium 8.7 mg/dl (8.6-10.3); Creatinine Clr Calc Pharmacy 159.2 ml/min; Est GFR (African American) 119.9 ml/min; Est GFR (Non-African American) 103.4 ml/min
--- NOTE | 2023-06-11 09:11 | Hospitalist Progress Note ---
Date of Service June 11, 2023 Assessment & Plan (1) S/P spinal surgery: Plan: L2-L3 decompression with Dr. Benites on 06/10/23 Perioperative antibiotics, pain management, fluids, and DVT PPx per the primary team Hgb 11.8 today, 14.1 prior to surgery --> likely acute blood loss anemia WBC 13.57 - likely related to steroid administration Electrolytes WNL PT/OT (2) Sleep apnea: Plan: Patient did not bring in home CPAP, which he uses at night for sleep apnea Ordered CPAP HS (3) Tobacco use: Plan: Patient reports that he quit smoking last Saturday 06/03 Former everyday tobacco cigarette smoker; 1-1.5 PPD Declined nicotine replacement while inpatient Encouraged continued cessation (4) Wheezing: Plan: May be secondary to recent illness or chronic tobacco use --> recommend outpatient follow up CXR: no acute process COVID negative on arrival Hx of asthma; albuterol inhaler as needed Stable on room air Ordered DuoNeb 3 mL as needed (5) Diabetes mellitus: Plan: Last A1c at 8.8% on 05/23/2023 Agree with holding glimepiride, metformin --> resume at discharge Pharmacy glycemic consult for basal insulin control, due to steroid use while inpatient SSI; with target BSG range 110-140mg/dL, CF 25, carb ratio 8 (6) Depression with anxiety: Plan: Continue paroxetine, escitalopram continue buspar Wean medications per outpatient psych recommendations (7) Hyperlipidemia: Plan: Continue gemfibrozil, atorvastatin (8) Hypothyroidism: Plan: Continue levothyroxine (9) HTN (hypertension): Plan: Continue lisinoprilHCTZ Plan Dispo: medically stable for discharge Thank you for allowing us to participate in the care of this patient, please reach out with any questions or concerns. Admission and Anticipated Discharge Date Admission Date: June 10, 2023 Subjective Patient seen lying in bed. Feeling well, pain well controlled. Has not had bowel movement yet. has not been using IS. Continues with cough, reports improved from respiratory illness last week. Confirmed that patient has seen psych since last PCP visit and had his medications adjusted. Review of Systems Review of Systems: All systems reviewed & are unremarkable except as noted in Subjective Physical Exam Physical Exam: General: NAD, VS as above Resp: normal respiratory effort, wheezing throughout CV: RRR, no murmur, Abd: normal bowel sounds, non tender, no hepatosplenomegaly Back: Dressing with shadowing/saturating, dry and intact --> nurse aware Extremities: Moves all extremities, no edema, Bilateral LE fidelia hose, distal sensation intact Neuro: A&O x3, Skin: intact, no lesions noted Results & Data Results & Data Vital Signs (Past 12 Hours) Vital Signs Temp Pulse Pulse Resp BP Pulse Ox O2 Del Method 06/11/23 08:00 Room Air, CPAP 06/11/23 07:32 36.8 C 70 18 117/71 96 Room Air 06/11/23 03:25 36.6 C 58 L 16 146/87 H 95 Room Air 06/11/23 02:42 59 L 14 93 06/10/23 23:36 36.7 C 60 16 134/80 94 Room Air 06/10/23 23:28 59 L 17 96 Laboratory Results CBC and chemistry reviewed PG Care Time/CCT Total # of Minutes Spent Total Time Spent with Patient: Total time spent is greater than 50% in coordination of care (as documented) at patient's floor/unit and/or counseling patient: Coding Level of Care Code 62460 SUB INP/OBS CARE 2/35MIN Diagnoses S/P spinal surgery Z98.890 Sleep apnea G47.30 Tobacco use Z72.0 Wheezing R06.2 Diabetes mellitus E11.9 Depression with anxiety F41.8 Hyperlipidemia E78.5 Hypothyroidism E03.9 HTN (hypertension) I10
--- NOTE | 2023-06-11 09:30 | Discharge Summary ---
Date of Service June 11, 2023 Principal Diagnosis Same as "Discharge Diagnosis" noted below under Discharge Instructions. Discharge Exam . On physical examination of the lower extremity, his dressing is clean, dry, intact to the lateral aspect of the lumbar spine. He has normal and equal strength and range of motion in all planes to the lower extremities bilaterally. Able to plantarflex and dorsiflex bilaterally. Able to do straight leg raises. +2 DP and PT pulses. Less than 2-second capillary refill. Normal sensation. Neurovascular intact. Discharge Data Consultations 06/10/23 14:36 Consult Hospitalist Routine Procedures Performed Operation Date: 06/10/23 11:30 Actual Procedures p L2-L3 Lumbar Decompression(Not Applicable) - Golden Benites MD Ordered Studies 06/10/23 11:30 FL spine 1V any level Routine Hospital Course (1) S/P spinal surgery: On June 10, 2023 Leighton arrived at [facility] and underwent a L2-L3 lumbar decompression with Dr. Benites. He had a general anesthetic. Postoperatively, he was transferred to the PACU for immediate postoperative care and then transferred up to the general orthopedic floor in stable condition. His hospital course was uneventful. On postoperative day #1, his vital signs are stable and his pain was well-controlled. He was able to participate well with physical therapy working on range of motion exercises. He was then discharged home in stable condition. He is going to follow-up with Dr. Benites in 2 weeks for postoperative care. PG Care Time/CCT Total # of Minutes Spent Total Time Spent with Patient: Total time spent is greater than 50% in coordination of care (as documented) at patient's floor/unit and/or counseling patient: Discharge Plan Discharge Items Patient Disposition: Home - Self-Care Reason For Visit: SURGERY Discharge Diagnosis: Same Activity: Per Instructions section Non-emergency contact: Surgeon Call non-emergency contact if: your temperature is above 101.5, your wound has increased redness and your wound has increased drainage Follow-up/Referrals: Vu Romero MD [Primary Care Provider] - Diet: Regular Ambulatory Orders: Basic Metabolic Panel (Routine) Timeframe: 1 Day Location: Determined by Patient Ordered By: Suha Gutierrez Hemoglobin A1C (Glycosylated) (Routine) Timeframe: 1 Day Location: Determined by Patient Ordered By: Suha Gutierrez Addtl Attending Provider Instructions: Please follow Dr. Benites Post Operative Instructions that were given in the office upon scheduling surgery. -Dressings will be changed prior to discharge. -Keep Surgical site dry for the next 3 days. -May shower after 3 days with no soaking of the surgical site -May leave surgical site open to air if dry. -Cover the surgical site with a bandage if draining or getting caught on clothes. -Take it easy for the next 2 weeks. (Ex: No Lifting, running, bending, or twisting, etc.). -Medication: Oxycodone/acetaminophen 5/325 will be prescribed on discharge for pain control. Take every 6 hours by mouth as needed for pain control. -You will F/u with Dr. Benites in 2 weeks for postoperative care. -If any questions or concerns in the mean time, Reach out to [facility] at [phone] Pending Studies at Discharge: No Stand-Alone Forms: My [employer], Smoking Cessation Medications and DC Order Prescriptions: New oxycodone-acetaminophen [Percocet] 5-325 mg Tablet 1 tab PO Q6 PRN (Reason: pain) Qty: 24 0RF Continued pregabalin 50 mg capsule 50 mg PO BID Qty: 60 2RF ibuprofen 200 mg capsule 200 mg PO Q6H PRN (Reason: Pain) (DME) OneTouch Verio test strips Strip See Dose Instructions .ROUTE .MEDSUPPLY Qty: 180 3RF Dose Instruction: As directed Rx Instructions: As directed-2x daily atorvastatin 20 mg tablet 20 mg PO DAILY Qty: 90 3RF albuterol sulfate 90 mcg/actuation HFA aerosol inhaler 2 inh INH Q8H PRN (Reason: shortness of breath or wheezing) Qty: 8.5 5RF fluticasone propionate 50 mcg/actuation spray,suspension See Rx Instructions .ROUTE .COMPLEX Qty: 16 5RF Dose Instruction: USE 2 SPRAY(S) IN EACH NOSTRIL DAILY Rx Instructions: USE 2 SPRAY(S) IN EACH NOSTRIL DAILY diclofenac sodium 75 mg tablet,delayed release (DR/EC) 75 mg PO BID Qty: 60 2RF metformin 1,000 mg tablet 1,000 mg PO BID Qty: 60 5RF levothyroxine 100 mcg tablet 100 mcg PO QAM Qty: 90 3RF Rx Instructions: TAKE 1 TABLET BY MOUTH DAILY 30 MINUTES BEFORE EATING OR TAKING ANY OTHER MEDICATIONS, WITH A GLASS OF WATER. (DME) lancets [OneTouch Delica Lancets] 30 gauge misc See Dose Instructions .ROUTE .MEDSUPPLY Qty: 180 3RF Dose Instruction: As directed Rx Instructions: As directed-2x daily sildenafil 100 mg tablet 100 mg PO .expected intercourse Qty: 14 2RF (DME) lancets [OneTouch Delica Lancets] 33 gauge misc See Rx Instructions .ROUTE .MEDSUPPLY Qty: 100 Rx Instructions: As directed (DME) blood sugar diagnostic [OneTouch Verio test strips] Strip See Rx Instructions .ROUTE .MEDSUPPLY Qty: 10 Rx Instructions: As directed cetirizine 10 mg tablet 10 mg PO DAILY PRN (Reason: Allergy Symptoms) nicotine (polacrilex) 2 mg gum 2 mg buccal Q2H PRN (Reason: craving) glimepiride 2 mg tablet 2 mg PO QAM Rx Instructions: Take 1 tablet by mouth once daily lisinopril-hydrochlorothiazide 20-25 mg tablet 1 tab PO QAM Rx Instructions: Take 1 tablet by mouth once daily paroxetine HCl 20 mg Tablet 20 mg PO PM Rx Instructions: Currently in the process of weaning off medication- will be on 20mg during 06/03/23 admission escitalopram oxalate [Lexapro] 10 mg Tablet 5 mg PO PM Rx Instructions: 1/2 of 10mg tablet every evening buspirone 7.5 mg tablet 7.5 mg PO PM gemfibrozil [Lopid] 600 mg tablet 600 mg PO BID Discharge Orders: Discharge Order (Routine); Ordered 06/11/23 Ordered By: Mikhail Cummings Admission Data Admit Date/Time: 06/10/23 14:30 Attending Provider: Golden Benites Admit Provider: Golden Benites Primary Care Provider: Vu Romero Other Providers: Lennox Anderson
--- NOTE | 2023-06-11 16:41 | Operative Report ---
PG Post Operative Report Pre & Post Diagnosis Operation Date: 06/10/23 11:30 Pre-Op Diagnosis: Lumbar Stenosis, Lumbar Radiculopathy Post-Op Diagnosis: Lumbar Stenosis, Lumbar Radiculopathy I identified the patient and participated in the time-out.: Yes Procedure Operation Date: 06/10/23 11:30 Actual Procedures p L2-L3 Lumbar Decompression(Not Applicable) - Golden Benites MD Surgeon Golden Benites MD Criminal Justice Teacher none Estimated Blood Loss 30 Findings Consistent with Post-Op Diagnosis Specimens none Description of Procedure 1. L2-3 posterior lumbar decompression (91540) Patient was taken the operating room after adequate anesthesia was carefully positioned prone on the [place] [place] frame. After doing so underwent a thorough preprepped followed by bringing in fluoroscopy where I then marked for the location for the incision at the L2-3 segment. Prep and drape was performed, I began the procedure with a midline incision and then advanced this down to the spinous processes and to the interlaminar region which then the location relative to the decompression was confirmed fluoroscopically. The soft tissues were then mobilized away from the interspace posteriorly, the position was reconfirmed, I then performed a decompression with utilizing a rongeur to remove the inferior aspect the spinous process of L2. Once getting better access to the interspace, the operative microscope was brought in. I used a high-speed bur to perform inferior hemilaminotomies across the inferior aspect of L2 bilaterally, and across the superior laminar aspect of L3 and along the medial facets on both sides. The remaining ligamentum flavum was then thinned with a combination of instruments, and then once getting access to the epidural region, the epidural fat was removed and then the thickened ligamentum flavum was then undercut and removed down to the facets on both sides with undercutting the facets at the decompressing the exiting L2 and L3 nerve roots. This process continued until the area is well decompressed heading both cephalad and caudally to remove the remaining ligamentum attached to the bone and epidural fat. With completion of decompression no evidence of CSF leakage was noted, the operative site was irrigated. Vancomycin powder was placed, local had been injected in and around the muscular tissue. The operative site was closed with 0 Vicryl sutures at the fascial layer, additional layer of 0 Vicryl sutures and 2-0 Vicryl sutures in a simple cutaneous region followed by moris for the skin. Sterile dressing was applied, patient was taken recovery room centric condition. I attest to the content of the Intraoperative Record and any orders documented therein. Any exceptions are noted below.
[2023-06-11] MEDS ORDERED: ESCITALOPRAM OXALATE 10 MG TAB PO SCH (21:00)
[2023-06-11] MEDS ORDERED: PARoxetine HCL 10 MG TAB PO SCH (21:00)
== END 2023-06-11 10:52 | disposition home or self-care (01) ==
LOC: 3E 09:55 → ASU 09:55
DX: J44.9 Chronic obstructive pulmonary disease, unspecified; Z79.890 Hormone replacement therapy; Z88.8 Allergy status to other drugs, medicaments and biological substances; Z79.84 Long term (current) use of oral hypoglycemic drugs; M48.061 Spinal stenosis, lumbar region without neurogenic claudication; M54.16 Radiculopathy, lumbar region; Z11.52 Encounter for screening for COVID-19; I10 Essential (primary) hypertension